=== PATIENT | female | born 1985 | race Caucasian/White ===

== ENCOUNTER 2019-08-20 02:38 | Emergency (ER) | payer BC ==
[~2019-08-20] VITALS: Ht 160 cm; Wt 83.9 kg
[2019-08-20 02:50] VITALS: BP_SYST 112
[2019-08-20] MEDS ORDERED: ONDANSETRON HCL 4 MG/2 ML VIAL IVP ONE ×2 (03:15→04:45)
[2019-08-20] MEDS ORDERED: MORPHINE 4 MG/ML INJ. SYRINGE IVP ONE ×2 (03:15→04:45)
[2019-08-20] MEDS ORDERED: NACL 0.9% 1,000 ML IV ONE (03:15)
[2019-08-20 03:35] LABS: BASOPHILS % (AUTO) 0.7 % (0.0-2.0); EOSINOPHILS # (AUTO) 0.1 K/uL (0.0-0.4); EOSINOPHILS % (AUTO) 1.5 % (0.0-4.0); HEMATOCRIT 38.8 % (36-48); HEMOGLOBIN 13.2 g/dL (12.0-16.0); LYMPHOCYTES # (AUTO) 2.2 K/uL (1.0-5.5); LYMPHOCYTES % (AUTO) 33.4 % (20.5-51.5); MEAN CORPUSCULAR HEMOGLOBIN 31 pg (27-31); MEAN CORPUSCULAR HGB CONC 34 % (32-36); MEAN CORPUSCULAR VOLUME 91 fL (79.0-98.0); MONOCYTES # (AUTO) 0.7 K/uL (0.0-1.0); MONOCYTES % (AUTO) 10.5 % (1.7-9.3); NEUTROPHILS # (AUTO) 3.5 K/uL (1.8-7.7); NEUTROPHILS % (AUTO) 53.9 % (40.0-70.0); PLATELET COUNT (AUTO) 231 K/uL (130-430); RED BLOOD CELL COUNT(AUTO) 4.28 MIL/uL (4.2-6.2); RED CELL DISTRIBUTION WIDTH 13.8 % (9.0-15.0); WHITE BLOOD COUNT (AUTO) 6.5 K/uL (4.8-10.8)
[2019-08-20 03:41] LABS: CALCIUM 8.9 mg/dL (8.4-11.0); CREATININE 0.73 mg/dL (0.55-1.30); POTASSIUM 3.4 mmol/L (3.5-5.1)
[2019-08-20 03:46] LABS: INR 0.9 (0.8-1.2); PROTHROMBIN TIME 9.5 SECS (9.5-12.5)
[2019-08-20] MEDS ORDERED: IOHEXOL 100 ML IV ONE (03:46)
[2019-08-20 03:47] LABS: ALBUMIN 3.6 g/dL (3.4-4.8); TOTAL BILIRUBIN 0.3 mg/dL (0.0-1.0)
[2019-08-20] MEDS ORDERED: KETOROLAC TROMETHAMINE 30 MG VIAL IVP ONE (04:45)
[2019-08-20 06:28] VITALS: BP_SYST 132
== END 2019-08-20 06:28 | disposition home or self-care (01) ==
LOC: SED 02:38
DX: R10.9 Unspecified abdominal pain (principal); R11.2 Nausea with vomiting, unspecified; Z88.0 Allergy status to penicillin
CPT/HCPCS: 36415; 74177; 76830; 76857; 80053; 84702; 84703; 85025; 85610; 85730; 86886; 86900; 86901; 96361; 96374; 96375; 96376; 99285; J1885; J2270; J2405; J7030; Q9967